=== PATIENT | female | born 1995 ===

== ENCOUNTER 2018-07-22 23:41 | Emergency (ER) | payer OTHER | END 2018-07-23 01:15 | disposition other institution (70) | LOC: ED 23:41 | DX: Z02.89 Encounter for other administrative examinations (principal) ==

== ENCOUNTER 2018-07-22 23:41 | Emergency (ER) | payer OTHER ==
[~2018-07-22] VITALS: Ht 162.6 cm; Wt 61.2 kg
[2018-07-22 23:44] VITALS: BP 116/82; Ht 162.6 cm; Wt 61.2 kg
== END 2018-07-23 01:15 | disposition other institution (70) ==
LOC: ED 23:41
DX: S02.2XXB Fracture of nasal bones, initial encounter for open fracture (principal); S01.21XA Laceration without foreign body of nose, initial encounter; F17.210 Nicotine dependence, cigarettes, uncomplicated; F41.9 Anxiety disorder, unspecified; F32.9 Major depressive disorder, single episode, unspecified; Z71.6 Tobacco abuse counseling; W22.8XXA Striking against or struck by other objects, initial encounter; Y93.89 Activity, other specified; Y92.89 Other specified places as the place of occurrence of the external cause; Y99.8 Other external cause status
CPT/HCPCS: 99406; J2001